=== PATIENT | female | born 1960 | race African-American/Black ===

== ENCOUNTER 2021-12-29 15:51 | Inpatient (IN) | payer BC, OTHER, SELFPAY ==
[2021-12-29 16:39] LABS: #Basophils 0.1 thou/uL (0.0-0.2); #Eosinphils 0.1 thou/uL (0.0-0.7); #Lymphocytes 3.2 thou/uL (1.20-3.40); #Monocytes 0.4 thou/uL (0.11-0.59); #Neutrophils 3.5 thou/uL (1.40-6.50); %Basophils 1.5 % (0.0-1.0); %Eosinophils 1.5 % (0.0-10.0); %Lymphocytes 43.4 % (21.0-51.0); %Monocytes 4.9 % (0.0-10.0); %Neutrophils 48.7 % (42.0-75.0); Hemoglobin 11.7 g/dL (12.0-16.0); Mean Corpuscular HGB CONC 33.5 g/dL (32.0-36.0); Mean Corpuscular Hemoglobin 21.8 pg (27.0-31.0); Mean Corpuscular Volume 65.1 fL (78.0-98.0); Mean Platelet Volume 11.8 fL (7.4-10.4); Platelet Count 170 thou/uL (130-400); Red Blood Cell (RBC) Count 5.36 mill/uL (4.20-5.40); White Blood Cell (WBC) Count 7.3 thou/uL (4.8-10.8)
[2021-12-29 16:48] LABS: MDiff Complete? YES; Microcytosis SLIGHT = 6-15 cells (100X) (0-5/hpf); Platelet Morphology Comment Appears Adequate; Polychromasia SLIGHT = 2-3 cells (100X) (0-2/hpf)
[2021-12-29 16:57] LABS: ALT (SGPT) 16 U/L (8-55); AST (SGOT) 14 U/L (5-34); Albumin 3.3 g/dL (3.4-4.8); Alkaline Phosphatase 73 U/L (40-110); Anion Gap 12 mmol/L (10-20); BUN (Urea Nitrogen) 14 mg/dL (9.8-20.1); Bilirubin, Total 0.4 mg/dL (0.2-1.2); Calc. Creatinine Clearance 0 mL/min (70-130); Calcium 8.3 mg/dL (7.8-10.44); Carbon Dioxide 18 mmol/L (23-31); Chloride 110 mmol/L (98-107); Globulin 3.5 g/dL (2.4-3.5); Glucose 100 mg/dL (80-115); Potassium 3.4 mmol/L (3.5-5.1); Protein, Total 6.8 g/dL (5.8-8.1); Sodium 137 mmol/L (136-145)
[2021-12-29] MEDS ORDERED: Dextrose 5% in Water 1,000 ML IV PRN (17:32)
[2021-12-29] MEDS ORDERED: Dextrose 50% Abboject 50 ML SYRINGE SLOW IVP PRN (17:32)
[2021-12-29] MEDS ORDERED: Acetaminophen 325 MG TAB PO PRN (17:32)
[2021-12-29] MEDS ORDERED: Acetaminophen 650 MG Suppository PR PRN (17:32)
[2021-12-29] MEDS ORDERED: Potassium Chloride 20 MEQ TAB ONE (17:36)
[2021-12-29] MEDS ORDERED: Enoxaparin Sodium 40 MG/0.4 ML SYRINGE SC SCH (17:45)
[2021-12-29 18:52] VITALS: BMI 30.6
[2021-12-29] MEDS ORDERED: Potassium Chloride 20 MEQ TAB PO SCH (20:15)
[2021-12-29] MEDS ORDERED: Insulin Glargine 30 UNITS/0.3 ML VIAL SC SCH ×2 (21:00)
[2021-12-29 21:12] LABS: Hemoglobin A1c 12.5 % (4.0-6.0)
[2021-12-29] MEDS: Sodium Chloride 0.9% 1,000 ML IV SCH (21:41)
[2021-12-29] MEDS: Gabapentin 300 MG CAP PO SCH (21:42)
[2021-12-29] MEDS: HYDROcodone/Acetaminophen 7.5/325 mg Tablet PO SCH (21:43)
[2021-12-29] MEDS: HumaLOG 300 UNITS/3 ML VIAL SC PRN (21:44)
[2021-12-30] MEDS: HumaLOG 300 UNITS/3 ML VIAL SC PRN ×6 (00:28→20:56)
[2021-12-30 07:58] LABS: Hemoglobin 11.1 g/dL (12.0-16.0); Mean Corpuscular HGB CONC 34.2 g/dL (32.0-36.0); Mean Corpuscular Hemoglobin 22.6 pg (27.0-31.0); Mean Platelet Volume 10.2 fL (7.4-10.4); Platelet Count 142 thou/uL (130-400); Red Blood Cell (RBC) Count 4.93 mill/uL (4.20-5.40); White Blood Cell (WBC) Count 4.9 thou/uL (4.8-10.8)
[2021-12-30 08:09] LABS: ALT (SGPT) 17 U/L (8-55); AST (SGOT) 16 U/L (5-34); Alkaline Phosphatase 68 U/L (40-110); Anion Gap 14 mmol/L (10-20); BUN (Urea Nitrogen) 11 mg/dL (9.8-20.1); Bilirubin, Total 0.2 mg/dL (0.2-1.2); Calc. Creatinine Clearance 90 mL/min (70-130); Calcium 8.6 mg/dL (7.8-10.44); Carbon Dioxide 17 mmol/L (23-31); Chloride 108 mmol/L (98-107); Globulin 3.4 g/dL (2.4-3.5); Glucose 249 mg/dL (80-115); Potassium 4.1 mmol/L (3.5-5.1); Protein, Total 6.4 g/dL (5.8-8.1); Sodium 135 mmol/L (136-145)
[2021-12-30] MEDS: Simvastatin 10 MG TAB PO SCH (08:58)
[2021-12-30] MEDS: Amlodipine 10 MG TAB PO SCH (08:58)
[2021-12-30] MEDS: Aspirin 81 mg Enteric Coated Tablet PO SCH (08:58)
[2021-12-30] MEDS: Ferrous Sulfate 325 MG TAB PO SCH (08:58)
[2021-12-30] MEDS: Gabapentin 300 MG CAP PO SCH (08:58)
[2021-12-30] MEDS: Cholecalciferol 1,000 UNITS (25 MCG) TAB PO SCH (08:58)
[2021-12-30] MEDS: HYDROcodone/Acetaminophen 7.5/325 mg Tablet PO SCH (08:59)
[2021-12-30] MEDS: Sodium Chloride 0.9% 1,000 ML IV SCH (09:00)
[2021-12-30] MEDS: Enoxaparin Sodium 40 MG/0.4 ML SYRINGE SC SCH (09:04)
[2021-12-30] MEDS ORDERED: Gabapentin 300 MG CAP PO PRN (09:39)
[2021-12-30] MEDS ORDERED: HYDROcodone/Acetaminophen 7.5/325 mg Tablet PO PRN (09:40)
[2021-12-30] MEDS ORDERED: Glimepiride 2 MG TAB PO SCH (10:00)
[2021-12-30 10:25] LABS: Eosinophils 2 % (0-10); Lymphocytes 58 % (21-51); MDiff Complete? YES; Microcytosis MODERATE=15-30 cells (100X) (0-5/hpf); Monocytes 4 % (0-10); Neutrophil 36 % (42-75); Platelet Morphology Comment Appears Adequate; Polychromasia SLIGHT = 2-3 cells (100X) (0-2/hpf)
[2021-12-30] MEDS: Lactated Ringer's 1,000 ML IV SCH ×2 (10:51→23:20)
[2021-12-30] MEDS ORDERED: metFORMIN 500 MG TAB PO SCH (17:00)
[2021-12-31] MEDS: HumaLOG 300 UNITS/3 ML VIAL SC PRN ×2 (03:42→12:29)
[2021-12-31] MEDS ORDERED: metFORMIN 850 MG TAB PO SCH (08:00)
[2021-12-31] MEDS ORDERED: Glimepiride 2 MG TAB PO SCH (08:00)
[2021-12-31] MEDS ORDERED: Glimepiride 4 MG TAB PO SCH (08:00)
[2021-12-31] MEDS: Enoxaparin Sodium 40 MG/0.4 ML SYRINGE SC SCH (08:19)
[2021-12-31] MEDS: Ferrous Sulfate 325 MG TAB PO SCH (08:20)
[2021-12-31] MEDS: Amlodipine 10 MG TAB PO SCH (08:20)
[2021-12-31] MEDS: Cholecalciferol 1,000 UNITS (25 MCG) TAB PO SCH (08:20)
[2021-12-31] MEDS: Aspirin 81 mg Enteric Coated Tablet PO SCH (08:20)
[2021-12-31] MEDS: Simvastatin 10 MG TAB PO SCH (08:20)
[2021-12-31 09:03] LABS: Anion Gap 10 mmol/L (10-20); BUN (Urea Nitrogen) 9 mg/dL (9.8-20.1); Calc. Creatinine Clearance 87 mL/min (70-130); Calcium 8.6 mg/dL (7.8-10.44); Carbon Dioxide 26 mmol/L (23-31); Chloride 104 mmol/L (98-107); Glucose 311 mg/dL (80-115); Sodium 136 mmol/L (136-145)
[2021-12-31 12:08] VITALS: BP 148/84; TEMP 98.4
== END 2021-12-31 12:40 | disposition home or self-care (01) | DRG 639 ==
LOC: ERS 15:51 → T4-A 17:32
PROVIDERS: ADMIT Internal Medicine; ATTEND Family Medicine
DX: E11.10 Type 2 diabetes mellitus with ketoacidosis without coma (principal); Z20.822 Contact with and (suspected) exposure to COVID-19; I10 Essential (primary) hypertension; E78.5 Hyperlipidemia, unspecified; Z79.899 Other long term (current) drug therapy; Z79.82 Long term (current) use of aspirin; Z79.84 Long term (current) use of oral hypoglycemic drugs; Z83.3 Family history of diabetes mellitus
CPT/HCPCS: 36415; 36416; 80048; 80053; 83036; 85025; 96365; J1650; J1815; J7050; J7120; U0003; U0005